=== PATIENT | male | born 1990 | race Hispanic/Latino ===

== ENCOUNTER 2019-08-04 06:16 | Emergency (ER) | payer SELFPAY ==
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
[2019-08-04 07:41] LABS: Absolute Lymphocytes (CBC) 1.1 K/uL (0.7-4.9); Basophils % 0.3 % (0-1.3); Hematocrit 39.6 % (39.6-49.0); Lymphocytes % 7.7 % (15.3-44.8); MPV 7.9 fL (7.6-11.3); RBC Red Blood Cell Count 4.41 M/uL (4.33-5.43)
[2019-08-04 08:00] LABS: Albumin 3.8 g/dL (3.4-5.0); Bilirubin Total 0.6 mg/dL (0.2-1.0); Potassium 3.1 mmol/L (3.5-5.1); Protein, Total 7.2 g/dL (6.4-8.2)
[2019-08-04] MEDS ORDERED: FENTANYL CITR 100 MCG/2 ML ONE (08:05)
[2019-08-04] MEDS ORDERED: LORazepam 2 MG/ML VIAL ONE (08:05)
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
[2019-08-04] MEDS ORDERED: BUPIVACAINE 0.5% PF 10 ML VIAL ONE (08:50)
[2019-08-04] MEDS ORDERED: TETANUS & DIPHTHERIA TOX,ADULT 0.5 ML VIAL ONE (09:55)
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
[2019-08-04 11:18] VITALS: BP 120/77; TEMP 98; O2SAT 99
== END 2019-08-04 11:05 | disposition home or self-care (01) ==
LOC: ER 06:16
PROC: 0JQG0ZZ Repair Right Lower Arm Subcutaneous Tissue and Fascia, Open Approach (ICD-10-PCS; principal; 2019-08-04)
DX: S41.111A Laceration without foreign body of right upper arm, initial encounter (principal); S40.811A Abrasion of right upper arm, initial encounter; S60.512A Abrasion of left hand, initial encounter; S80.212A Abrasion, left knee, initial encounter; S80.812A Abrasion, left lower leg, initial encounter; S30.811A Abrasion of abdominal wall, initial encounter; V20.4XXA Motorcycle driver injured in collision with pedestrian or animal in traffic accident, initial encounter; Z72.0 Tobacco use; Z23 Encounter for immunization
CPT/HCPCS: 36415; 70450; 71260; 72125; 74177; 80053; 85025; 86850; 86900; 86901; 90471; 90714; 96374; 96375; 99284; J3010; Q9967

== ENCOUNTER 2022-04-13 15:42 | Emergency (ER) | payer SELFPAY ==
[2022-04-13 17:26] LABS: Urine Blood Trace-intact (Negative); Urine Glucose Negative (Negative); Urine Protein Negative (Negative)
--- NOTE | 2022-04-13 17:34 | RAD REPORT ---
EXAM DESCRIPTION: US - Scrotum Testicles - 04/13/2022 5:09 pm CLINICAL HISTORY: r/o torsionleft-sided pain and fever COMPARISON: <Comparisons> FINDINGS: Testicular tissue is homogeneous with no intratesticular mass lesions. Doppler evaluation shows a normal, symmetric intratesticular blood flow. No left-sided testicular hyperemia to suspect a n orchitis. The left epididymis is enlarged, edematous and hyperemic. Minimal bilateral hydroceles are present. No hernia or other significant extra testicular finding. IMPRESSION: Left-sided epididymitis pattern. Normal blood flow within each testicle.
[2022-04-13 18:10] LABS: Urine Bacteria <20 /HPF (NONE SEEN); Urine Mucus LIGHT /HPF (NONE SEEN); Urine RBC <5 /HPF (NONE SEEN)
--- NOTE | 2022-04-13 18:45 | ER ---
Nurse's Notes [facility] Name: Ravinder Drake Age: 31 yrs Sex: Male : 1990 Arrival Date: 04/13/2022 Time: 15:43 Bed 11 Private MD: Diagnosis: Epididymitis Presentation: 04/13 15:52 Chief complaint: Patient states: Dysuria with hematuria, Fever, chills, body aches x 4 jl7 days, left testicular pain x 1 day and swelling started today. Coronavirus screen: At this time, the client does not indicate any symptoms associated with coronavirus-19. Ebola Screen: No symptoms or risks identified at this time. Initial Sepsis Screen: Does the patient meet any 2 criteria? No. Patient's initial sepsis screen is negative. Does the patient have a suspected source of infection? No. Patient's initial sepsis screen is negative. Risk Assessment: Do you want to hurt yourself or someone else? Patient reports no desire to harm self or others. Onset of symptoms was April 09, 2022. 15:52 Method Of Arrival: Ambulatory [facility] 15:52 Acuity: ROCAEL 3 jl7 Triage Assessment: 15:54 General: Appears in no apparent distress. uncomfortable, Behavior is calm, cooperative, jl7 appropriate for age. Pain: Complains of pain in left testicle Pain currently is 2 out of 10 on a pain scale. Historical: - Allergies: 15:54 No Known Allergies; jl7 - Home Meds: 15:54 None [Active]; jl7 - PMHx: 15:54 None; jl7 - PSHx: 15:54 None; jl7 - Immunization history:: Adult Immunizations unknown. - Social history:: Smoking status: Patient reports the use of cigarette tobacco products, denies chronic smoking, but will smoke occasionally. Screenin:10 Abuse screen: Denies threats or abuse. Nutritional screening: No deficits noted. fu Tuberculosis screening: No symptoms or risk factors identified. Fall Risk None identified. Assessment: 19:10 General: Appears in no apparent distress. Behavior is calm, cooperative, appropriate fu for age. Pain: Complains of pain in testicles Pain does not radiate. Pain currently is 6 out of 10 on a pain scale. Respiratory: Respiratory effort is even, unlabored, Respiratory pattern is regular. : Reports pain testicle. Vital Signs: 15:52 BP 141 / 87; Pulse 110; Resp 15; Temp 97.4; Pulse Ox 100% ; Weight 81.65 kg; Height 5 jl7 ft. 7 in. (170.18 cm); Pain 2/10; 15:52 Body Mass Index 28.19 (81.65 kg, 170.18 cm) 7 ED Course: 15:43 Patient arrived in ED. am2 15:45 [facility]ctor [facility]C [facility]. kb 15:45 Anshu Gaming MD is Attending Physician. kb 15:54 Triage completed. jl7 15:54 Arm band placed on right wrist. jl7 17:11 US Scrotum Testicles In Process Unspecified. EDMS 18:50 Lori Vega, RN is Primary Nurse. jl7 19:10 Bed in low position. Call light in reach. fu 19:30 No provider procedures requiring assistance completed. Patient did not have IV access fu during this emergency room visit. Administered Medications: 19:30 Drug: Rocephin (cefTRIAXone) 500 mg Route: IM; Site: right gluteus; fu 21:38 Follow up: Response: Medication administered at discharge. fu 19:30 Drug: Doxycycline 100 mg Route: PO; fu 21:38 Follow up: Response: Medication administered at discharge. fu Medication: 19:30 VIS not applicable for this client. fu Outcome: 18:45 Discharge ordered by . kb 19:30 Discharged to home ambulatory. fu 19:30 Condition: stable 19:30 Discharge instructions given to patient, Instructed on discharge instructions, follow up and referral plans. Demonstrated understanding of instructions, follow-up care, Prescriptions given X 1. 19:33 Patient left the ED. fu Signatures: Dispatcher [employer] EDHI Jolanta Proctor FNP-C FNP-Ckb Leal, Jahala, RN RN jl7 Danyell Guillory am2 Rigo Fabian RN RN fu
--- NOTE | 2022-04-13 18:45 | EDPHYS ---
Physician Documentation [facility] Name: Ravinder Drake Age: 31 yrs Sex: Male : 1990 Arrival Date: 04/13/2022 Time: 15:43 Bed 11 Private MD: ED Physician Anshu Gaming HPI: 04/14 00:17 This 31 yrs old Male presents to ER via Ambulatory with complaints of kb Testicular Swelling, Testicular Pain, Fever, bodyaches. 00:17 The patient presents with scrotal pain, of the left side, with swelling, swelling, that kb is moderate, of the left testicle. Onset: The symptoms/episode began/occurred yesterday. Modifying factors: The symptoms are alleviated by nothing, the symptoms are aggravated by nothing. Associated signs and symptoms: Pertinent positives: dysuria, hematuria, Pertinent negatives: abdominal pain, constipation, diarrhea, fever, nausea, vomiting. Severity of symptoms: At their worst the symptoms were moderate, in the emergency department the symptoms are unchanged. The patient has not experienced similar symptoms in the past. The patient has not recently seen a physician. Historical: - Allergies: 04/13 15:54 No Known Allergies; jl7 - Home Meds: 15:54 None [Active]; jl7 - PMHx: 15:54 None; jl7 - PSHx: 15:54 None; jl7 - Immunization history:: Adult Immunizations unknown. - Social history:: Smoking status: Patient reports the use of cigarette tobacco products, denies chronic smoking, but will smoke occasionally. ROS: 04/14 00:16 Constitutional: Negative for fever, chills, and weight loss. kb : Positive for hematuria, burning with urination, testicular pain All other systems are negative. Exam: 00:16 Constitutional: This is a well developed, well nourished patient who is awake, alert, kb and in no acute distress. Head/Face: Normocephalic, atraumatic. ENT: Moist Mucous membranes Cardiovascular: Regular rate and rhythm with a normal S1 and S2. No gallops, murmurs, or rubs. No pulse deficits. Respiratory: Respirations even and unlabored. No increased work of breathing. Talking in full sentences Abdomen/GI: Soft, non-tender. No distention Back: No spinal tenderness. No costovertebral tenderness. Full range of motion. Skin: Warm, dry with normal turgor. Normal color. MS/ Extremity: Pulses equal, no cyanosis. Neurovascular intact. Full, normal range of motion. Neuro: Awake and alert, GCS 15, oriented to person, place, time, and situation. Moves all extremities. Normal gait. Psych: Awake, alert, with orientation to person, place and time. Behavior, mood, and affect are within normal limits. Vital Signs: 04/13 15:52 BP 141 / 87; Pulse 110; Resp 15; Temp 97.4; Pulse Ox 100% ; Weight 81.65 kg; Height 5 jl7 ft. 7 in. (170.18 cm); Pain 2/10; 15:52 Body Mass Index 28.19 (81.65 kg, 170.18 cm) jl7 MDM: 15:52 Patient medically screened. kb 04/14 00:15 Data reviewed: vital signs, nurses notes. Data interpreted: Pulse oximetry: on room air kb is 100 %. Interpretation: normal. Counseling: I had a detailed discussion with the patient and/or guardian regarding: the historical points, exam findings, and any diagnostic results supporting the discharge/admit diagnosis, lab results, radiology results, the need for outpatient follow up, a urologist, to return to the emergency department if symptoms worsen or persist or if there are any questions or concerns that arise at home. 04/13 15:53 Order name: Urine Microscopic Only; Complete Time: 18:11 kb 04/13 17:26 Order name: Urine Dipstick-Ancillary; Complete Time: 17:27 EDMS 04/13 15:53 Order name: Urine Dipstick-Ancillary (obtain specimen); Complete Time: 17:59 kb 04/13 15:53 Order name: US Scrotum Testicles; Complete Time: 17:42 kb Administered Medications: 04/13 19:30 Drug: Rocephin (cefTRIAXone) 500 mg Route: IM; Site: right gluteus; fu 21:38 Follow up: Response: Medication administered at discharge. fu 19:30 Drug: Doxycycline 100 mg Route: PO; fu 21:38 Follow up: Response: Medication administered at discharge. fu Disposition Summary: 04/13/22 18:45 Discharge Ordered Location: Home kb Condition: Stable kb Diagnosis - Epididymitis kb Followup: kb - With: Emergency Department - When: As needed - Reason: Worsening of condition Followup: kb - With: Private Physician - When: 2 - 3 days - Reason: Recheck today's complaints, Continuance of care, Re-evaluation by your physician Discharge Instructions: - Discharge Summary Sheet kb - Epididymitis kb Forms: - Medication Reconciliation Form kb - Thank You Letter kb - Antibiotic Education kb - Prescription Opioid Use kb Prescriptions: - Doxycycline Hyclate 100 mg Oral Tablet - take 1 tablet by ORAL route every 12 hours; 20 tablet; Refills: 0, Product kb Selection Permitted Addendum: 04/16/2022 10:26 Co-signature as Attending Physician, Anshu Gaming MD. r n Signatures: Dispatcher [employer] EDMS Jolanta Proctor, UNDERWEAR HEMMER-C UNDERWEAR HEMMER-CkAnshu Kasper MD MD rn Leal, Jahala, RN RN jlRigo Funez RN RN fu Corrections: (The following items were deleted from the chart) 04/14 00:17 00:16 Constitutional: Negative for fever, chills, and weight loss, Cardiovascular: kb Negative for chest pain, palpitations, and edema, Respiratory: Negative for shortness of breath, cough, wheezing, and pleuritic chest pain, Abdomen/GI: Negative for abdominal pain, nausea, vomiting, diarrhea, and constipation, Back: Negative for injury and pain, MS/Extremity: Negative for injury and deformity, Skin: Negative for injury, rash, and discoloration, Neuro: Negative for headache, weakness, numbness, tingling, and seizure, Psych: Negative for depression, anxiety, suicide ideation, homicidal ideation, and hallucinations, kb
[2022-04-13] MEDS ORDERED: DOXYCYCLINE 100 MG CAP PO ONE (19:27)
[2022-04-13] MEDS ORDERED: CEFTRIAXONE 500 MG/VIAL ONE (19:27)
[2022-04-13] MEDS ORDERED: WATER FOR INJ,STERILE 10 ML ONE (19:28)
[2022-04-13 19:42] VITALS: BP 141/87; TEMP 97.4; O2SAT 100
== END 2022-04-13 19:33 | disposition home or self-care (01) ==
LOC: ER 15:42
DX: N45.1 Epididymitis (principal); F17.210 Nicotine dependence, cigarettes, uncomplicated
CPT/HCPCS: 76870; 81003; 81015; 96372; 99283; J0696

== ENCOUNTER → 2023-11-03 | Emergency (ER) | payer SELFPAY ==
[~2023-11-03] MED LIST: AZITHROMYCIN 250 MG TAB ONE; CEFTRIAXONE 1000 MG/VIAL ONE; CIPROFLOXACIN HCL 500 MG TAB ONE; DOXYCYCLINE 100 MG CAP PO ONE; KETOROLAC 30 MG/ML INJ ONE; ONDANSETRON 4 MG/2 ML VIAL ONE
[2023-11-03 07:31] LABS: Specific Gravity > 1.030 (1.005-1.030); Urine Bacteria >50 /HPF (<20); Urine Bilirubin NEGATIVE (Negative); Urine Blood Negative (Negative); Urine Clarity Turbid (Clear); Urine Color Light-Yellow (Yellow); Urine Glucose NEGATIVE (Negative); Urine Mucus 1+ /HPF (None Seen); Urine Protein TRACE (Negative); Urine RBC <5 /HPF (None Seen); Urine Urobilinogen Normal (Normal); Urine pH 5.5 (5.0-7.0)
[2023-11-03 07:36] LABS: Absolute Lymphocytes (CBC) 2.8 K/uL (0.7-4.9); Hematocrit 44.6 % (39.6-49.0); Lymphocytes % 21.1 % (15.3-44.8); MCV 88.3 fL (80-100); MPV 7.3 fL (7.6-11.3); Platelets 389 thou/uL (152-406); RBC Red Blood Cell Count 5.04 M/uL (4.33-5.43)
[2023-11-03 07:56] LABS: Albumin 3.4 g/dL (3.4-5.0); Bilirubin Total 0.3 mg/dL (0.2-1.0); Potassium 4.1 mEq/L (3.5-5.1); Protein, Total 7.5 g/dL (6.4-8.2)
--- NOTE | 2023-11-03 08:14 | ER ---
Nurse's Notes [facility] Name: Ravinder Drake Age: 33 yrs Sex: Male : 1990 Arrival Date: 11/03/2023 Time: 05:53 Bed 17 Private MD: Diagnosis: Epididymo-orchitis;Cyst of epididymis;UTI/ Urinary tract infection, site not specified Presentation: 11/03 06:04 Chief complaint: Patient states: that he has had left testicular tenderness x1 month nw1 and swelling x1 week. Per patient, he woke up this morning with discomfort and wanted to get his left testicle looked at. Pt endorses unprotected sex with multiple people. Denies any other symptoms. Coronavirus screen: Vaccine status: Patient reports being unvaccinated. Client denies travel out of the [place] in the last 14 days. At this time, the client does not indicate any symptoms associated with coronavirus-19. Ebola Screen: Patient negative for fever greater than or equal to 101.5 degrees Fahrenheit, and additional compatible Ebola Virus Disease symptoms Patient denies exposure to infectious person. Patient denies travel to an Ebola-affected area in the 21 days before illness onset. No symptoms or risks identified at this time. Initial Sepsis Screen:. Risk Assessment: Do you want to hurt yourself or someone else? Patient reports no desire to harm self or others. Onset of symptoms was October 03, 2023. 06:04 Method Of Arrival: Ambulatory nw1 06:04 Acuity: ROCAEL 3 nw1 06:04 Initial Sepsis Screen: Does the patient meet any 2 criteria? No. Patient's initial nw1 sepsis screen is negative. Does the patient have a suspected source of infection? No. Patient's initial sepsis screen is negative. Triage Assessment: 06:04 General: Appears in no apparent distress. comfortable, well groomed, Behavior is calm, nw1 cooperative. Pain: Complains of pain in left testicle. EENT: No deficits noted. No signs and/or symptoms were reported regarding the EENT system. Neuro: No deficits noted. Cardiovascular: No deficits noted. Respiratory: No deficits noted. GI: No deficits noted. No signs and/or symptoms were reported involving the gastrointestinal system. : Reports left testicular pain Patient is sexually active. Derm: No deficits noted. No signs and/or symptoms reported regarding the dermatologic system. Musculoskeletal: No deficits noted. No signs and/or symptoms reported regarding the musculoskeletal system. Historical: - Allergies: 06:08 No Known Allergies; nw1 - Immunization history:: Adult Immunizations unknown. - Social history:: Smoking status: Patient reports the use of cigarette tobacco products, 1 pack per week, Patient/guardian denies using alcohol, street drugs, IV drugs, caffeine, over the counter diet medications, tobacco products. - Family history:: not pertinent. Screenin:15 [facility] ED Fall Risk Assessment (Adult) History of falling in the last 3 months, nw1 including since admission No falls in past 3 months (0 pts) Confusion or Disorientation No (0 pts) Intoxicated or Sedated No (0 pts) Impaired Gait No (0 pts) Mobility Assist Device Used No (0 pt) Altered Elimination No (0 pt) Score/Fall Risk Level 0 - 2 = Low Risk Oriented to surroundings, Maintained a safe environment, Educated pt \T\ family on fall prevention, incl call for assistance when getting out of bed, Assessed \T\ reinforced patient's understanding of fall precautions, Provided non-skid footwear, Hourly rounding (assess needs \T\ fall precautionary measures) done. Abuse screen: Denies threats or abuse. Denies injuries from another. Nutritional screening: No deficits noted. Tuberculosis screening: No symptoms or risk factors identified. Assessment: 06:15 Reassessment: see triage assessment. nw1 07:00 Reassessment: Patient appears in no apparent distress at this time. No changes from [facility] previously documented assessment. Patient and/or family updated on plan of care and expected duration. Pain level reassessed. Patient is alert, oriented x 3, equal unlabored respirations, skin warm/dry/pink. 08:00 Reassessment: Patient appears in no apparent distress at this time. No changes from kc6 previously documented assessment. Patient and/or family updated on plan of care and expected duration. Pain level reassessed. Patient is alert, oriented x 3, equal unlabored respirations, skin warm/dry/pink. Vital Signs: 06:04 BP 145 / 98; Pulse 87; Resp 15; Temp 98.1; Pulse Ox 99% on R/A; Weight 81.65 kg (R); nw1 Height 5 ft. 7 in. ; Pain 6/10; 07:12 BP 153 / 99; Pulse 73; Resp 16 S; Pulse Ox 100% on R/A; kc6 06:04 Body Mass Index 28.19 (81.65 kg, 170.18 cm) nw1 06:04 Pain Scale: Adult nw1 Vitals: 06:15 Cardiac Rhythm Assessment Regular Sinus rhythm. nw1 [place] Coma Score: 06:15 Eye Response: spontaneous(4). Motor Response: obeys commands(6). Verbal Response: nw1 oriented(5). Total: 15. 06:24 Eye Response: spontaneous(4). Motor Response: obeys commands(6). Verbal Response: sp4 oriented(5). Total: 15. ED Course: 05:57 Patient arrived in ED. gm2 05:59 Dillon Haq MD is Attending Physician. sp4 06:04 Karime Guzman RN is Primary Nurse. nw1 06:04 Arm band placed on left wrist. nw1 06:08 Triage completed. nw1 06:15 Placed in gown. Bed in low position. Call light in reach. Side rails up X 1. Provided nw1 Education on: POC. Door closed. Warm blanket given. 06:15 No provider procedures requiring assistance completed. Patient did not have IV access nw1 during this emergency room visit. 07:00 Report received from ROBERT Schaffer. kc6 07:01 US Scrotum Testicles In Process Unspecified. EDMS 07:12 Urinalysis W/Microscopic Sent. kc6 07:13 Attending Physician role handed off by Dillon Haq MD vangie 07:13 Sergio Hamilton MD is Attending Physician. vangie 08:13 To Alavres MD is Referral Physician. vangie Administered Medications: 07:42 Drug: Rocephin IV 1 grams IV at per protocol once; Given slow IV push per pharmacy kc6 instructions Route: IV; Rate: per protocol; Site: right antecubital; 08:21 Follow up: Response: Nausea is increased; Vomiting increased; IV Status: Completed kc6 infusion; IV Intake: 10ml 07:42 Drug: AZITHromycin PO 1 grams PO once Route: PO; kc6 08:21 Follow up: Response: No adverse reaction kc6 07:42 Drug: Doxycycline PO 200 mg PO once Route: PO; kc6 08:21 Follow up: Response: No adverse reaction kc6 07:42 Drug: Ketorolac IVP 30 mg IVP once Route: IVP; Site: right antecubital; kc6 08:21 Follow up: Response: No adverse reaction; Pain is decreased kc6 07:47 Drug: Ondansetron IVP 4 mg IVP once; over 2 minutes Route: IVP; Site: right antecubital;kc6 08:21 Follow up: Response: No adverse reaction; Nausea is decreased; Vomiting decreased kc6 08:25 Drug: Ciprofloxacin PO 500 mg PO once Route: PO; kc6 08:27 Follow up: Response: No adverse reaction kc6 Medication: 06:15 VIS not applicable for this client. nw1 Intake: 08:21 IV: 10ml; Total: 10ml. kc6 Outcome: 08:14 Discharge ordered by . vangie 08:29 Discharged to home ambulatory, kc6 08:29 Condition: good 08:29 Discharge instructions given to patient, Instructed on discharge instructions, follow up and referral plans. medication usage, Demonstrated understanding of instructions, follow-up care, medications, Prescriptions given X 3, 08:29 Patient left the ED. kc6 Signatures: Dispatcher [employer] EDMS Sergio Hamilton MD MD cha Campbell, Kaitlyn, RN RN kc6 Dillon Haq MD MD sp4 Anisa Zhong 2 Karime Guzman, ROBERT RN nw1 Corrections: (The following items were deleted from the chart) 06:13 06:04 Temp 98.1F; 81.65 kg Reported; Height 5 ft. 7 in.; BMI: 28.1; nw1 nw1
--- NOTE | 2023-11-03 08:14 | EDPHYS ---
Physician Documentation [facility] Name: Ravinder Drake Age: 33 yrs Sex: Male : 1990 Arrival Date: 11/03/2023 Time: 05:53 Bed 17 Private MD: RICK Physician Sergio Hamilton HPI: 11/03 05:59 This 33 yrs old Male presents to ER via Unassigned with complaints of sp4 Testicular Swelling. 06:01 33-year-old male with history of epididymitis presents with testicular sp4 discomfort. 06:24 Patient presents with left testicular pain for the past 2 days. Left testicle sp4 significant pain and discomfort without any associated symptoms.. History of left epididymitis on March 2022. Historical: - Allergies: 06:08 No Known Allergies; nw1 - Immunization history:: Adult Immunizations unknown. - Social history:: Smoking status: Patient reports the use of cigarette tobacco products, 1 pack per week, Patient/guardian denies using alcohol, street drugs, IV drugs, caffeine, over the counter diet medications, tobacco products. - Family history:: not pertinent. ROS: 06:24 Constitutional: Negative for fever, chills, and weight loss, : Positive for left sp4 testicular pain and swelling. 06:24 All other systems are negative, Exam: 06:24 Constitutional: This is a well developed, well nourished patient who is awake, alert, sp4 and in no acute distress. Head/Face: Normocephalic, atraumatic. Eyes: Pupils equal round and reactive to light, extra-ocular motions intact. Lids and lashes normal. Conjunctiva and sclera are not injected. Cornea within normal limits. Periorbital areas with no swelling, redness, or edema. ENT: Nares patent. No nasal discharge, no septal abnormalities noted. Tympanic membranes are normal and external auditory canals are clear. Oropharynx with no redness, swelling, or masses, exudates, or evidence of obstruction, uvula midline. Mucous membranes moist. Neck: Trachea midline, no thyromegaly or masses palpated, and no cervical lymphadenopathy. Supple, full range of motion without nuchal rigidity, or vertebral point tenderness. Chest/axilla: Normal chest wall appearance and motion. Nontender with no deformity. No lesions are appreciated. Cardiovascular: Regular rate and rhythm with a normal S1 and S2. No gallops, murmurs, or rubs. Normal PMI, no JVD. No pulse deficits. Respiratory: Lungs have equal breath sounds bilaterally, clear to auscultation and percussion. No rales, rhonchi or wheezes noted. No increased work of breathing, no retractions or nasal flaring. Abdomen/GI: Soft, non-tender, with normal bowel sounds. No distension or tympany. No guarding or rebound. No evidence of tenderness throughout. Back: No spinal tenderness. No costovertebral tenderness. There is sacral decubitus ulcer that is covered by the wound VAC. Male : Normal genitalia with no discharge or lesions. Positive left testicular swelling and left testicular tenderness and an area of epididymis, no sign of testicular mass Skin: Warm, dry with normal turgor. Normal color with no rashes, no lesions, and no evidence of cellulitis. MS/ Extremity: Pulses equal, no cyanosis. Neurovascular intact. Full, normal range of motion. Neuro: Awake and alert, GCS 15, oriented to person, place, time, and situation. Cranial nerves II-XII grossly intact. Motor strength 5/5 in all extremities. Sensory grossly intact. Psych: Awake, alert, with orientation to person, place and time. Behavior, mood, and affect are within normal limits Vital Signs: 06:04 BP 145 / 98; Pulse 87; Resp 15; Temp 98.1; Pulse Ox 99% on R/A; Weight 81.65 kg (R); nw1 Height 5 ft. 7 in. ; Pain 6/10; 07:12 BP 153 / 99; Pulse 73; Resp 16 S; Pulse Ox 100% on R/A; kc6 06:04 Body Mass Index 28.19 (81.65 kg, 170.18 cm) nw1 06:04 Pain Scale: Adult nw1 [place] Coma Score: 06:15 Eye Response: spontaneous(4). Motor Response: obeys commands(6). Verbal Response: nw1 oriented(5). Total: 15. 06:24 Eye Response: spontaneous(4). Motor Response: obeys commands(6). Verbal Response: sp4 oriented(5). Total: 15. MDM: 06:03 Patient medically screened. sp4 07:08 Differential diagnosis: urinary retention, prostatitis, urethritis. Data reviewed: sp4 vital signs, nurses notes. Transition of care: After a detail discussion of the patient's case, care is transferred to Sergio Hamilton MD. 11/03 06:02 Order name: Urinalysis W/Microscopic; Complete Time: 07:43 sp4 11/03 07:15 Order name: CBC with Diff; Complete Time: 07:58 [facility] 11/03 07:15 Order name: Comprehensive Metabolic Panel; Complete Time: 07:58 [facility] 11/03 07:37 Order name: Urine Culture EDMS 11/03 06:18 Order name: US Scrotum Testicles sp4 Administered Medications: 07:42 Drug: Rocephin IV 1 grams IV at per protocol once; Given slow IV push per pharmacy kc6 instructions Route: IV; Rate: per protocol; Site: right antecubital; 08:21 Follow up: Response: Nausea is increased; Vomiting increased; IV Status: Completed kc6 infusion; IV Intake: 10ml 07:42 Drug: AZITHromycin PO 1 grams PO once Route: PO; kc6 08:21 Follow up: Response: No adverse reaction kc6 07:42 Drug: Doxycycline PO 200 mg PO once Route: PO; kc6 08:21 Follow up: Response: No adverse reaction kc6 07:42 Drug: Ketorolac IVP 30 mg IVP once Route: IVP; Site: right antecubital; kc6 08:21 Follow up: Response: No adverse reaction; Pain is decreased kc6 07:47 Drug: Ondansetron IVP 4 mg IVP once; over 2 minutes Route: IVP; Site: right antecubital;kc6 08:21 Follow up: Response: No adverse reaction; Nausea is decreased; Vomiting decreased kc6 08:25 Drug: Ciprofloxacin PO 500 mg PO once Route: PO; kc6 08:27 Follow up: Response: No adverse reaction kc6 Disposition Summary: 11/03/23 08:14 Discharge Ordered Notes: Location: Home vangie Problem: new vangie Symptoms: have improved vangie Condition: Stable vangie Diagnosis - Epididymo-orchitis vangie - Cyst of epididymis vangie - UTI/ Urinary tract infection, site not specified vangie Followup: vangie - With: Private Physician - When: 2 - 3 days - Reason: Recheck today's complaints, Continuance of care, Re-evaluation by your physician Followup: vangie - With: To Alvares MD - When: 2 - 3 days - Reason: Recheck today's complaints, Re-evaluation by your physician Discharge Instructions: - Discharge Summary Sheet vangie - Dysuria vangie - Epididymitis vangie - Orchitis vangie - Urinary Tract Infection, Adult vangie - Urinary Tract Infection, Adult, [id number] vangie - Antibiotic Medicine, Adult [facility] Forms: - Medication Reconciliation Form vangie - Thank You Letter vangie - Antibiotic Education vangie - Prescription Opioid Use vangie - Patient Portal Instructions vangie - Leadership Thank You Letter vangie - Work release form eb Prescriptions: - Ibuprofen 600 mg Oral Tablet - take 1 tablet ORAL route every 6 hours As needed take with food; 30 tablet; vangie Refills: 0, Product Selection Permitted - Doxycycline Hyclate 100 mg Oral Tablet - take 1 tablet ORAL route every 12 hours; 20 tablet; Refills: 0, Product vangie Selection Permitted - Cipro 500 mg Oral Tablet - take 1 tablet ORAL route every 12 hours for 7 days; 14 tablet; Refills: 0, vangie Product Selection Permitted Signatures: Dispatcher [employer] Sergio George MD MD cha Campbell, Kaitlyn RN RN kc6 Dillon Haq MD MD sp4 Karime Guzman, ROBERT RN nw1
--- NOTE | 2023-11-03 08:29 | RAD REPORT ---
EXAM DESCRIPTION: US - Scrotum Testicles - 11/03/2023 7:00 am CLINICAL HISTORY: Testicular pain COMPARISON: None FINDINGS: Right testicle measures 4 x 2 x 2.9 centimeters. Echotexture is homogeneous. Normal blood flow Left testicle measures 3.6 x 2.2 x 2.4 centimeters. Echotexture is homogeneous. Normal blood flow Right epididymis is normal size and echotexture. The left epididymis is enlarged with increased blood flow. Small left spermatocele IMPRESSION: Left epididymitis
[2023-11-03 09:09] VITALS: TEMP 98.1
[2023-11-03 09:23] VITALS: BP 153/99; O2SAT 100
== END ==
LOC: ER 05:53
DX: N45.3 Epididymo-orchitis (principal); N39.0 Urinary tract infection, site not specified; N50.3 Cyst of epididymis
CPT/HCPCS: 36415; 76870; 80053; 81001; 85025; 87077; 87086; 87088; 87186; 96365; 96375; 99284; J0696; J2405